=== PATIENT | female | born 1965 | race Caucasian/White ===

== ENCOUNTER → 2021-03-23 | Day surgery (SDC) | payer OTHER ==
[~2021-03-23] VITALS: Ht 147.3 cm; Wt 82.0 kg
[~2021-03-23] MED LIST: IV RINGERS,LACTATED 1000ML 1,000 ML IV SCH; LIDOCAINE 2% PF 5 ML VIAL. ONE; PROPOFOL 10 MG/ML (20ML) VIAL. IV ONE
[2021-03-23 09:49] VITALS: BP 130/61
[2021-03-23 10:45] VITALS: BP 124/59
--- NOTE | 2021-03-27 14:10 | PATHOLOGY ---
[facility] Accession Number: [id number] . 01 Material submitted: . esophagus - BIOPSY DISTAL ESOPHAGUS. Modifiers: distal . 01 Clinical history: . GERD EGD GERD W/ BREAKTHROUGH SYMPTOMS . 02 Diagnosis: Esophageal biopsies, distal esophagus: - Reflux esophagitis. (JPM:pit; 03/27/2021) [facility] 03/27/2021 0712 Local . 02 Comment: Sections of the distal esophageal biopsy reveal segments of tangentially oriented, hyperplastic squamous esophageal mucosa showing focal chronic inflammation. The findings are consistent with reflux esophagus. There is no evidence of Estrada's change, dysplasia, or malignancy. (JPM:pit; 03/27/2021) . 02 Electronically signed: . Gunnar Shelton MD, Pathologist NPI- [id number] . 01 Gross description: . Received in formalin labeled "Laney Cook, BX distal esophagus" are multiple galvan-brown soft tissue fragments measuring in aggregate 0.7 x 0.4 x 0.1 cm. The specimen is submitted entirely in A1. [place] [place] [facility] 03/24/2021 1029 Local . 02 Pathologist provided ICD-10: K21.00 . 02 CPT . 334610 Specimen Comment: A courtesy copy of this report has been sent to [phone], [phone] Specimen Comment: [id number] Specimen Comment: Report sent to / DR ALANIZ Performed at: 01 [facility] [address], [place], [place] [id number] MD Nawaf Alcala MD Phone: [phone] Performed at: 02 [facility] [address], [place] [id number] MD Gunnar Shelton MD Phone: [phone]
== END | disposition home or self-care (01) ==
LOC: SURG 08:57
PROVIDERS: ATTEND Internal Medicine Gastroenterology
DX: R13.10 Dysphagia, unspecified (principal); R12 Heartburn; K21.00 Gastro-esophageal reflux disease with esophagitis, without bleeding; K31.89 Other diseases of stomach and duodenum; K22.2 Esophageal obstruction; E78.00 Pure hypercholesterolemia, unspecified; J45.909 Unspecified asthma, uncomplicated; K21.9 Gastro-esophageal reflux disease without esophagitis; M19.90 Unspecified osteoarthritis, unspecified site; E03.9 Hypothyroidism, unspecified; F41.9 Anxiety disorder, unspecified; Z91.040 Latex allergy status; Z88.8 Allergy status to other drugs, medicaments and biological substances; Z20.822 Contact with and (suspected) exposure to COVID-19; Z79.899 Other long term (current) drug therapy; Z98.890 Other specified postprocedural states
CPT/HCPCS: 43239; 87426; 88305; J2704; 43450